=== PATIENT | male | born 1995 | race Caucasian/White ===

== ENCOUNTER 2017-02-17 15:33 | Inpatient (IN) | payer BC ==
[~2017-02-17] VITALS: Ht 180.3 cm; Wt 67.2 kg
--- NOTE | 2017-02-17 16:43 | DIAGNOSTIC IMAGING REPORT ---
SINGLE VIEW CHEST CLINICAL HISTORY: Weakness. Change in mental status. FINDINGS: An AP, portable, upright chest radiograph is obtained. No prior studies are available for comparison at the time of dictation. The cardiomediastinal silhouette is unremarkable. The lungs and pleural spaces are clear. No pneumothorax is seen. The bony thorax is grossly intact. IMPRESSION: No active disease in the chest. Electronically signed by: Pradeep Arceo M.D. 02/17/2017 4:42 PM Dictated Date/Time: 02/17/2017 4:42 PM
[2017-02-17 17:08] LABS: INR 1.3 (0.9-1.1); PARTIAL THROMBOPLASTIN RATIO 1.3
[2017-02-17 17:20] LABS: BUN/CREATININE RATIO 11.2 (10-20); CALCIUM 8.8 mg/dl (8.5-10.1); CREATININE 0.96 mg/dl (0.60-1.40)
[2017-02-17 17:21] LABS: URINE APPEARANCE CLEAR (CLEAR); URINE BILIRUBIN NEG (NEG); URINE COLOR YELLOW; URINE NITRITE NEG (NEG); URINE PH 7.5 (4.5-7.5); URINE SPECIFIC GRAVITY 1.009 (1.000-1.030); UROBILINOGEN NEG (NEG); ZZUR CULT IF INDIC CLEAN CATCH NO
[2017-02-17 17:22] LABS: MANUAL MICROSCOPIC REQUIRED? NO; REVIEW REQ? NO
[2017-02-17 17:30] LABS: THYROID STIMULATING HORMONE 0.521 uIu/ml (0.300-4.500)
[2017-02-17 17:48] LABS: BASO ABS # 0.06 K/uL (0-0.2); BASOPHIL % 0.9 % (0-2); COMPLETE YES; HEMATOCRIT 44.2 % (42-52); LARGE PLATELETS 2+; LYMPH ABS # 1.87 K/uL (1.2-3.4); LYMPHOCYTE % 28.9 %; MEAN CELL VOLUME 91.3 fL (80-100); MEAN CORPUSCULAR HEMOGLOBIN 30.4 pg (25-34); MEAN CORPUSCULAR HGB CONC 33.3 g/dl (32-36); NEUTROPHILS % 46.5 %; PLATELET COUNT 7 K/uL (130-400); PLT ESTIMATE SIGNIFIC DECREASED; RED BLOOD COUNT 4.84 M/uL (4.7-6.1); VARIANT LYM ABS # 1.25 K/uL; VARIANT LYMPHOCYTE % 19.3 %; WHITE BLOOD COUNT 6.46 K/uL (4.8-10.8)
[2017-02-17] MEDS ORDERED: METHYLPREDNISOLONE 125 MG VIAL IV STA (18:27)
--- NOTE | 2017-02-17 18:54 | EMERGENCY ROOM VISIT NOTE ---
History Report prepared by Heron: Renzo Dutta Under the Supervision of: Dr. Pradeep Sarabia M.D. First contact with patient: 16:08 Chief Complaint: REFERRED BY DOCTOR Stated Complaint: BRUISING, BLOOD PLATELET COUNT LOW; REF. BY [facility] History of Present Illness The patient is a 21 year old male who presents to the Emergency Room with complaints of abnormal blood work that was taken prior to arrival. The patient states that he started to experience diaphoresis over night on February 03, , and . The patient states that he noticed bruising and easy bleeding for two weeks. He reports that if he cuts himself shaving, he cannot control the bleeding. He reports that on 02/09 he noticed that he had a bruise and was unsure how it happened. The patient states that he noticed another bruise a couple of days following his first bruise. He reports that he noticed that his gums would bleed when he brushed his teeth. The patient states that he noticed he was also experiencing mouth ulcers and blood blisters a couple of times. The patient also states that he noticed dry blood on his scalp after waking up one morning, but is unsure if he scratched his scalp overnight. He reports that he has been fatigued lately, which he believes is due to stress from school. The patient admits that he slept all day and missed classes one day. He reports that last night, he noticed that there were "red dots: on his lower extremities. The patient states that this morning, he noticed that the "red dots " also appeared on his left upper extremity. The patient states that he went to [facility] for blood work, and had a result of a platelet count of 3000. He reports that [facility] sent him to the ED. The patient denies having these symptoms before, a fever, sore throat, melena, hematochezia, and fluctuating weight. Source of History: patient Onset: prior to arrival Position: other (global) Quality: other (3000 platelet count) Associated Symptoms: + fatigue, + rash, No fevers, No sorethroat, No melena , No hematochezia Review of Systems See HPI for pertinent positives & negatives. A total of 10 systems reviewed and were otherwise negative. Past Medical & Surgical Medical Problems: (1) Bruising The patient reports no pertinent medical or surgical history. Family History Cancer Diabetes mellitus FH: heart disease Hypertension Social History Smoking Status: Never Smoker Smokeless Tobacco Use: No Alcohol Use: occasionally Drug Use: none Marital Status: single Housing Status: lives with roommate Occupation Status: [employer] student Current/Historical Medications No Active Prescriptions or Reported Meds Allergies Coded Allergies: No Known Allergies (Unverified , 02/17/17) Physical Exam Vital Signs Date Time Temp Pulse Resp B/P (MAP) Pulse Ox O2 Delivery O2 Flow Rate FiO2 02/17/17 18:35 64 18 120/67 98 Room Air 02/17/17 15:56 37.4 92 18 129/73 98 Room Air Physical Exam GENERAL: Patient is in no acute distress. HEENT: No acute trauma, normocephalic atraumatic, mucous membranes moist, no nasal congestion, no scleral icterus. Scattered blisters along the buccal mucosa filled with blood. No throat erythema. NECK: No stridor, no adenopathy, no meningismus, trachea is midline. LUNGS: Clear to auscultation bilaterally, no wheeze, no rhonchi, breath sounds equal. HEART: Without murmurs gallops or rubs, regular rate and rhythm. ABDOMEN: Soft, nontender, bowel sounds positive, no hernias, no peritonitis. EXTREMITIES: No cyanosis or edema, full range of motion of all the joints without pain or difficulty. NEUROLOGIC: Oriented x 3, no acute motor or sensory deficits, no focal weakness. SKIN: No jaundice. Two bruises on the right lower extremity and one on left lower extremity. Medical Decision & Procedures ER Provider Diagnostic Interpretation: X-ray results as stated below per interpretation by me and the radiologist: SINGLE VIEW CHEST CLINICAL HISTORY: Weakness. Change in mental status. FINDINGS: An AP, portable, upright chest radiograph is obtained. No prior studies are available for comparison at the time of dictation. The cardiomediastinal silhouette is unremarkable. The lungs and pleural spaces are clear. No pneumothorax is seen. The bony thorax is grossly intact. IMPRESSION: No active disease in the chest. Electronically signed by: Pradeep Arceo M.D. 02/17/2017 4:42 PM Dictated Date/Time: 02/17/2017 4:42 PM Laboratory Results 02/17/17 16:32 Red Blood Count 4.84, Mean Corpuscular Volume 91.3, Mean Corpuscular Hemoglobin 30.4, Mean Corpuscular Hemoglobin Concent 33.3 02/17/17 16:32 Test 02/17/17 16:32 02/17/17 16:50 02/17/17 17:00 White Blood Count 6.46 K/uL (4.8-10.8) Red Blood Count 4.84 M/uL (4.7-6.1) Hemoglobin 14.7 g/dL (14.0-18.0) Hematocrit 44.2 % (42-52) Mean Corpuscular Volume 91.3 fL (80-100) Mean Corpuscular Hemoglobin 30.4 pg (25-34) Mean Corpuscular Hemoglobin Concent 33.3 g/dl (32-36) Platelet Count 7 K/uL (130-400) RDW Standard Deviation 42.3 fL (36.4-46.3) RDW Coefficient of Variation 12.6 % (11.5-14.5) Neutrophils % (Manual) 46.5 % Lymphocytes % (Manual) 28.9 % Variant Lymphocytes % (manual) 19.3 % Monocytes % (Manual) 4.4 % Basophils % (Manual) 0.9 % (0-2) Neutrophils # (Manual) 3.00 K/uL (1.4-6.5) Total Absolute Neutrophils 3.00 K/uL (1.4-6.5) Lymphocytes # (Manual) 1.87 K/uL (1.2-3.4) Absolute Variant Lymphocytes 1.25 K/uL Total Absolute Lymphocytes 3.11 K/uL (1.2-3.4) Monocytes # (Manual) 0.28 K/uL (0.11-0.59) Basophils # (Manual) 0.06 K/uL (0-0.2) Platelet Estimate SIGNIFIC DECREASED Large Platelets 2+ Anion Gap 6.0 mmol/L (3-11) Est Creatinine Clear Calc Drug Dose 118.8 ml/min Estimated GFR () 130.4 Estimated GFR (Non- 112.5 BUN/Creatinine Ratio 11.2 (10-20) Calcium Level 8.8 mg/dl (8.5-10.1) Total Bilirubin 0.6 mg/dl (0.2-1) Aspartate Amino Transf (AST/SGOT) 32 U/L (15-37) Alanine Aminotransferase (ALT/SGPT) 59 U/L (12-78) Alkaline Phosphatase 104 U/L (45-117) Total Creatine Kinase 102 U/L (39-308) Total Protein 7.9 gm/dl (6.4-8.2) Albumin 3.9 gm/dl (3.4-5.0) Globulin 4.0 gm/dl (2.5-4.0) Albumin/Globulin Ratio 1.0 (0.9-2) Thyroid Stimulating Hormone (TSH) 0.521 uIu/ml (0.300-4.500) Prothrombin Time 14.0 SECONDS (9.0-12.0) Prothromb Time International Ratio 1.3 (0.9-1.1) Activated Partial Thromboplast Time 32.7 SECONDS (21.0-31.0) Partial Thromboplastin Ratio 1.3 Urine Color YELLOW Urine Appearance CLEAR (CLEAR) Urine pH 7.5 (4.5-7.5) Urine Specific [place] 1.009 (1.000-1.030) Urine Protein NEG (NEG) Urine Glucose (UA) NEG (NEG) Urine Ketones NEG (NEG) Urine Occult Blood NEG (NEG) Urine Nitrite NEG (NEG) Urine Bilirubin NEG (NEG) Urine Urobilinogen NEG (NEG) Urine Leukocyte Esterase NEG (NEG) Laboratory results reviewed by me. Medications Administered Medications (Trade) Dose Ordered Sig/Nidia Route Start Time Stop Time Status Last Admin Dose Admin Methylprednisolone Sodium Succinate (Solu-Medrol IV) 100 mg NOW STAT IV 02/17/17 18:27 02/17/17 18:28 DC 02/17/17 18:36 100 MG ED Course 1612: The patient was evaluated in room B03B. A complete history and physical exam was performed. 1824: I discussed the patient's case with Rosa Allred Hematology. He suggests that the patient is given IV Solu-Medrol and is kept in the hospital. 1833: I discussed the patient's case with Dr. Gabrielle Colorado, [facility] Hospitalist. She understands the patient's condition and agrees to accept the patient. The patient will be further evaluated. 1834: I reevaluated the patient and updated him on his results. I discussed his treatment plan and he agreed to the plan. The patient will be further evaluated. Medical Decision The patient is a 21 year old male who presents to the ED with complaints of abnormal lab work that occurred prior to arrival. Differential diagnoses considered include viral illness, malignancy, coagulopathy, bone marrow suppression, ITP, There is no leukocytosis or concerning anemia. Platelet count is quite low at only 7000. A mild coagulopathy was noted with an INR 1.3. No significant electrolyte abnormalities, kidney failure or hepatitis. The patient appears to be in a euthyroid state. Urinalysis does not show hematuria or infection. Chest film does not show mediastinal widening or pneumonia. I spoke with the process manager electronic commerce specialist. IV steroids were recommended. The patient was given 100 mg of IV Solu-Medrol. The patient requires admission/observation. 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 I talked with the patient and case management. The on-call hospitalist was consulted. Medication Reconcilliation Current Medication List: was personally reviewed by me Blood Pressure Screening Patient's blood pressure: Normal blood pressure Consults Time Called: 1823 Consulting Physician: Rosa Allred Hematology Returned Call: 1823 I discussed the patient's case with Rosa Allred Hematology. He suggests that the patient is given IV Solu-Medrol and is kept in the hospital. Additional Consults: Time Called: 1832 Consulted Physician: Dr. Gabrielle Colorado, [facility] Hospitalist Returned Call: 1832 Additional Comments: I discussed the patient's case with Dr. Gabrielle Colorado, [facility] Hospitalist. She understands the patient's condition and agrees to accept the patient. The patient will be further evaluated. Impression Primary Impression: Acute ITP Scribe Attestation The scribe's documentation has been prepared under my direction and personally reviewed by me in its entirety. I confirm that the note above accurately reflects all work, treatment, procedures, and medical decision making performed by me. Departure Information Dispostion Being Evaluated By Hospitalist Prescriptions No Active Prescriptions or Reported Meds Referrals [facility] (PCP) Patient Instructions [facility]
[2017-02-17] MEDS ORDERED: ACETAMINOPHEN 325 MG TAB PO PRN (19:00)
[2017-02-17] MEDS ORDERED: ONDANSETRON INJ 2 MG/ML 2 ML VIAL IV PRN (19:00)
[2017-02-17] MEDS ORDERED: MAGNESIUM HYDROXIDE SUSP 30 ML UDC PO PRN (19:00)
--- NOTE | 2017-02-17 19:01 | History and Physical ---
History & Physical Date & Time of Service: Feb 17, 2017 at 18:52 Chief Complaint: Bruising, Blood Platelet Count Low; Ref. By [facility] Primary Care Physician: Services,[facility] History of Present Illness Source: patient 21 y/o M who was sent here by [facility] for low platelet counts. Pt states he noticed blood blisters along the inside of his mouth in early January. He had night sweats every night from 02/03- and has felt generally tired since this time. He is taking a higher course load this semester and attributed it to this. He started noticing bruising around 02/09 and he states that he does not usually bruise easily. Last night he had red spots on his legs and this AM they were present on his arms. They have since resolved but he has a photo on his camera. He was seen by [facility] and found to have a platelet count of 3. Pt states he otherwise feels fine, but is overall fatigued. No prior hx of ITP or other blood disorders. Pt denies fever, SOB, chest pain, abd pain, n/v/c/d, LE pain or swelling. No abd pain throughout this episode. Possibly some darker sputum but no leila bleeding. No nosebleeds or blood in urine or stool. Pt does have HIV exposure risk stemming from an incident on 12/13. HIV testing on 12/26 was neg and again on 02/06. Pt notes his mother is getting on Friday. Past Medical/Surgical History Denies prior health issues or hospitalizations Family History Family history was reviewed; no changes noted. Neg for ITP Social History Smoking Status: Never Smoker Alcohol Use: socially (but has been quite busy with school and overall fatigued , so not much in the past month) Drug Use: none Allergies Coded Allergies: No Known Allergies (Unverified , 02/17/17) Home Medications No Active Prescriptions or Reported Meds Review of Systems Pertinent positives and negatives reviewed in HPI--all others negative Physical Exam Vital Signs Date Time Temp Pulse Resp B/P (MAP) Pulse Ox O2 Delivery O2 Flow Rate FiO2 02/17/17 18:35 64 18 120/67 98 Room Air 02/17/17 15:56 37.4 92 18 129/73 98 Room Air General Appearance: WD/WN, no apparent distress Head: normocephalic, atraumatic Eyes: normal inspection, EOMI ENT: hearing grossly normal Neck: supple Respiratory/Chest: normal breath sounds, no respiratory distress, no accessory muscle use Cardiovascular: regular rate, rhythm, no edema Abdomen/GI: non tender, soft Extremities/Musculoskelatal: no calf tenderness, no pedal edema Neurologic/Psych: alert, normal mood/affect Skin: warm/dry, + pertinent finding (bruising on LE) Diagnostics Laboratory Results Results Past 24 Hours Test 02/17/17 16:32 02/17/17 16:50 02/17/17 17:00 Range/Units White Blood Count 6.46 4.8-10.8 K/uL Red Blood Count 4.84 4.7-6.1 M/uL Hemoglobin 14.7 14.0-18.0 g/dL Hematocrit 44.2 42-52 % Mean Corpuscular Volume 91.3 80-100 fL Mean Corpuscular Hemoglobin 30.4 25-34 pg Mean Corpuscular Hemoglobin Concent 33.3 32-36 g/dl Platelet Count 7 130-400 K/uL RDW Standard Deviation 42.3 36.4-46.3 fL RDW Coefficient of Variation 12.6 11.5-14.5 % Neutrophils % (Manual) 46.5 % Lymphocytes % (Manual) 28.9 % Variant Lymphocytes % (manual) 19.3 % Monocytes % (Manual) 4.4 % Basophils % (Manual) 0.9 0-2 % Neutrophils # (Manual) 3.00 1.4-6.5 K/uL Total Absolute Neutrophils 3.00 1.4-6.5 K/uL Lymphocytes # (Manual) 1.87 1.2-3.4 K/uL Absolute Variant Lymphocytes 1.25 K/uL Total Absolute Lymphocytes 3.11 1.2-3.4 K/uL Monocytes # (Manual) 0.28 0.11-0.59 K/uL Basophils # (Manual) 0.06 0-0.2 K/uL Platelet Estimate SIGNIFIC DECREASED Large Platelets 2+ Sodium Level 138 136-145 mmol/L Potassium Level 4.0 3.5-5.1 mmol/L Chloride Level 103 98-107 mmol/L Carbon Dioxide Level 29 21-32 mmol/L Anion Gap 6.0 3-11 mmol/L Blood Urea Nitrogen 11 7-18 mg/dl Creatinine 0.96 0.60-1.40 mg/dl Est Creatinine Clear Calc Drug Dose 118.8 ml/min Estimated GFR () 130.4 Estimated GFR (Non- 112.5 BUN/Creatinine Ratio 11.2 10-20 Random Glucose 91 70-99 mg/dl Calcium Level 8.8 8.5-10.1 mg/dl Total Bilirubin 0.6 0.2-1 mg/dl Aspartate Amino Transf (AST/SGOT) 32 15-37 U/L Alanine Aminotransferase (ALT/SGPT) 59 12-78 U/L Alkaline Phosphatase 104 45-117 U/L Total Creatine Kinase 102 39-308 U/L Total Protein 7.9 6.4-8.2 gm/dl Albumin 3.9 3.4-5.0 gm/dl Globulin 4.0 2.5-4.0 gm/dl Albumin/Globulin Ratio 1.0 0.9-2 Thyroid Stimulating Hormone (TSH) 0.521 0.300-4.500 uIu/ml Prothrombin Time 14.0 9.0-12.0 SECONDS Prothromb Time International Ratio 1.3 0.9-1.1 Activated Partial Thromboplast Time 32.7 21.0-31.0 SECONDS Partial Thromboplastin Ratio 1.3 Urine Color YELLOW Urine Appearance CLEAR CLEAR Urine pH 7.5 4.5-7.5 Urine Specific [place] 1.009 1.000-1.030 Urine Protein NEG NEG Urine Glucose (UA) NEG NEG Urine Ketones NEG NEG Urine Occult Blood NEG NEG Urine Nitrite NEG NEG Urine Bilirubin NEG NEG Urine Urobilinogen NEG NEG Urine Leukocyte Esterase NEG NEG CXR normal Impression Assessment and Plan 21 y/o M who was admitted on 02/17 for ITP ITP: platelets 7 on admission Hem has recommended for steroids and monitor Will give 140mg QD (2mg/kg/day) Recent HIV testing WNL, will not repeat Hem/onc c/s pending No hx of prior Hb WNL UA neg Spleen is not palpable on exam TSH WNL Level of Care Med/Surg VTE Prophylaxis VTE Risk Assessment Done? Y/N: Yes Risk Level: Low
--- NOTE | 2017-02-17 19:43 | Oncology Consultation ---
Oncology/Heme Consultation Date of Consultation: Feb 17, 2017. 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 He states that he noticed bruising on his lower extremities some that were provoked in some lower unprovoked over the past 2-3 weeks. He is also has some gingival bleeding over the past couple of weeks. He states that he feels he has some oral blood blisters. About 2 weeks ago he had a 1 or 2 day bout of night sweats he states. He presented to the emergency room with this bruising and was found to be thrombocytopenic. His past medical history is really unremarkable. Denies significant ethyl alcohol usage. He denies headache. He denies any blood in his urine or blood in the stool. He describes what might of been petechiae on his lower as well as upper extremities earlier today that has since resolved. Past Medical/Surgical History Medical Problems: (1) Acute ITP Status: Acute (2) Traumatic ecchymosis of multiple sites of lower extremity Status: Acute (3) Traumatic ecchymosis of multiple sites of upper extremity and shoulder Status: Acute Family History Relation not specified for: Cancer Diabetes mellitus FH: heart disease Hypertension Heart disease primarily; his grandfather did have leukemia. Social History Negative for significant smoking. He does drink alcohol. He describes over this weekend that he had some alcohol Friday evening but none or very little Friday Smoking Status: Never Smoker Smokeless Tobacco Use: No Alcohol Use: socially (but has been quite busy with school and overall fatigued , so not much in the past month) Drug Use: none Marital Status: single Housing Status: lives with roommate Occupation Status: [employer] student Allergies Coded Allergies: No Known Allergies (Unverified , 02/17/17) Home Medications No Active Prescriptions or Reported Meds Current Inpatient Medications Current Inpatient Medications Medications (Trade) Dose Ordered Sig/Nidia Route Start Time Stop Time Status Last Admin Dose Admin Acetaminophen (Tylenol Tab) 650 mg Q4H PRN PO 02/17/17 19:00 03/19/17 18:59 UNV Magnesium Hydroxide (Milk Of Magnesia Susp) 30 ml Q6H PRN PO 02/17/17 19:00 03/19/17 18:59 UNV Ondansetron HCl (Zofran Inj) 4 mg Q6H PRN IV 02/17/17 19:00 03/19/17 18:59 UNV Methylprednisolone Sodium Succinate 140 mg/Syringe 2.24 ml @ 1.5 mls/min DAILY IV 02/18/17 09:00 03/20/17 08:59 UNV Review of Systems Constitutional: Negative for weight loss, night sweats except for a day or 2 on February 03, he denies fever Eyes: Negative for event change of vision ENT: Negative for epistaxis, nasal discharge, sore throat, or deafness Cardiovascular: Negative for chest pain, palpitations, dizziness, diaphoresis Respiratory: Negative for new shortness of breath,hemoptysis, or purulent cough Gastrointestinal: Negative for diarrhea, hematemesis, melena, nausea, vomiting , or dyspepsia Integumentary (skin): Negative for rash or jaundice discoloration Genitourinary: Negative for urinary frequency, hematuria, or dysuria Neurological: Negative for weakness, seizure activity, headache, or dizziness Lymphatic/Hematologic: Negative for petechiae, bleeding or new adenopathy Musculoskeletal: Negative for new joint or back pain Allergic/Immunologic: Negative for unusual rash except for what might have been petechiae earlier today on his left arm; he denies pruritis. Physical Exam Date Time Temp Pulse Resp B/P (MAP) Pulse Ox O2 Delivery O2 Flow Rate FiO2 02/17/17 18:35 64 18 120/67 98 Room Air 02/17/17 15:56 37.4 92 18 129/73 98 Room Air Constitutional: vitals are stable. Alert pleasant well-developed gentleman Eyes: Eyes are IVY EOMI without conjuctival erythema or icterus. ENT: External examination was negative for masses. He does have some oral petechiae on the posterior aspect of the upper palate Neck: Negative for masses or palpable thyromegaly Respiratory: Lung sounds were generally clear bilaterally Cardiovascular: Heart was RRR without significant murmur, gallops aoe rubs Gastrointestinal: No palpable hepatic or splenomegaly. The abdomen was soft with normal bowel sounds. Lymphatic system: there was no palpable peripheral lymphadenopathy Musculoskeletal System: The musculoskeletal system seemed concordant with age. Skin: The skin was negative for jaundice. There were some ecchymotic bruising particularly over the right lower extremity. No petechiae are noted Neurologic exam: The exam was negative for any focal findings. Deep tendon reflexes were equal and symmetrical. Psychiatric exam: Was essentially negative with normal mood and effect. Extremities: Negative for edema erythema Laboratory Results Last 24 Hours Test 02/17/17 16:32 02/17/17 16:50 02/17/17 17:00 White Blood Count 6.46 K/uL Red Blood Count 4.84 M/uL Hemoglobin 14.7 g/dL Hematocrit 44.2 % Mean Corpuscular Volume 91.3 fL Mean Corpuscular Hemoglobin 30.4 pg Mean Corpuscular Hemoglobin Concent 33.3 g/dl Platelet Count 7 K/uL RDW Standard Deviation 42.3 fL RDW Coefficient of Variation 12.6 % Neutrophils % (Manual) 46.5 % Lymphocytes % (Manual) 28.9 % Variant Lymphocytes % (manual) 19.3 % Monocytes % (Manual) 4.4 % Basophils % (Manual) 0.9 % Neutrophils # (Manual) 3.00 K/uL Total Absolute Neutrophils 3.00 K/uL Lymphocytes # (Manual) 1.87 K/uL Absolute Variant Lymphocytes 1.25 K/uL Total Absolute Lymphocytes 3.11 K/uL Monocytes # (Manual) 0.28 K/uL Basophils # (Manual) 0.06 K/uL Platelet Estimate SIGNIFIC DECREASED Large Platelets 2+ Sodium Level 138 mmol/L Potassium Level 4.0 mmol/L Chloride Level 103 mmol/L Carbon Dioxide Level 29 mmol/L Anion Gap 6.0 mmol/L Blood Urea Nitrogen 11 mg/dl Creatinine 0.96 mg/dl Est Creatinine Clear Calc Drug Dose 118.8 ml/min Estimated GFR () 130.4 Estimated GFR (Non- 112.5 BUN/Creatinine Ratio 11.2 Random Glucose 91 mg/dl Calcium Level 8.8 mg/dl Total Bilirubin 0.6 mg/dl Aspartate Amino Transf (AST/SGOT) 32 U/L Alanine Aminotransferase (ALT/SGPT) 59 U/L Alkaline Phosphatase 104 U/L Total Creatine Kinase 102 U/L Total Protein 7.9 gm/dl Albumin 3.9 gm/dl Globulin 4.0 gm/dl Albumin/Globulin Ratio 1.0 Thyroid Stimulating Hormone (TSH) 0.521 uIu/ml Prothrombin Time 14.0 SECONDS Prothromb Time International Ratio 1.3 Activated Partial Thromboplast Time 32.7 SECONDS Partial Thromboplastin Ratio 1.3 Urine Color YELLOW Urine Appearance CLEAR Urine pH 7.5 Urine Specific [place] 1.009 Urine Protein NEG Urine Glucose (UA) NEG Urine Ketones NEG Urine Occult Blood NEG Urine Nitrite NEG Urine Bilirubin NEG Urine Urobilinogen NEG Urine Leukocyte Esterase NEG Assessment & Plan Probable ITP. Review of his peripheral smear shows a red cells to be very banal. No significant Aniso- or poikilocytosis. White cell morphology is also normal. Platelets are not clumped. Would recommend steroids only for now. Let 's begin with IV Solu-Medrol 80-120 mg a day in divided doses - perhaps 40 mg IV 3 times daily. Of course daily CBCs. Once the platelet count appears to be trending upwards then he will be discharged on oral prednisone and a taper will then occur as an outpatient. This is all reviewed with the patient this evening and he seems to understand.
[2017-02-17 21:12] VITALS: BP 125/71; PULSE 81; TEMP 36.8; O2SAT 97; Ht 180.3 cm; Wt 67.2 kg
[2017-02-18] VITALS: O2SAT 97
[2017-02-18 00:04] VITALS: BP 116/68; PULSE 66; TEMP 36.4; O2SAT 96
[2017-02-18 07:13] LABS: HEMATOCRIT 42.4 % (42-52); MEAN CELL VOLUME 89.8 fL (80-100); MEAN CORPUSCULAR HEMOGLOBIN 30.9 pg (25-34); MEAN CORPUSCULAR HGB CONC 34.4 g/dl (32-36); RED BLOOD COUNT 4.72 M/uL (4.7-6.1); WHITE BLOOD COUNT 6.33 K/uL (4.8-10.8)
[2017-02-18 07:18] LABS: PLATELET COUNT 8 K/uL (130-400)
[2017-02-18 07:20] LABS: PLT ESTIMATE SIGNIFIC DECREASED
[2017-02-18 07:39] VITALS: BP 123/67; PULSE 68; TEMP 36.5; O2SAT 98
[2017-02-18] MEDS ORDERED: METHYLPREDNISOLONE IV SCH (08:00)
[2017-02-18] MEDS ORDERED: DEXTROSE 5% IV SCH (08:00)
[2017-02-18 08:36] LABS: INR 1.1 (0.9-1.1)
[2017-02-18] MEDS: METHYLPREDNISOLONE IV 40 MG in SYRINGE 0 ML IV SCH ×2 (09:30→16:57)
--- NOTE | 2017-02-18 10:51 | Hematology/Oncology Prog Note ---
Hematology/Onc Progress Note Date of Service Feb 18, 2017. Diagnoses ITP Medications Medications Administered Medications (Trade) Dose Ordered Sig/Nidia Route Start Time Stop Time Status Last Admin Dose Admin Methylprednisolone Sodium Succinate (Solu-Medrol IV) 100 mg NOW STAT IV 02/17/17 18:27 02/17/17 18:28 DC 02/17/17 18:36 100 MG Methylprednisolone Sodium Succinate 40 mg/Syringe 0.64 ml @ 1.5 mls/min Q8H IV 02/18/17 08:30 03/20/17 08:29 02/18/17 09:30 1.5 MLS/MIN Subjective He is doing well. Denies any overt bleeding. Denies any appearance of new petechiae. He denies headache. Review of Systems: Constitutional: Negative for fever or bleeding Eyes: Negative for event change of vision ENT: Negative for epistaxis, nasal discharge, sore throat, or deafness Cardiovascular: Negative for chest pain, palpitations, dizziness, diaphoresis Respiratory: Negative for new shortness of breath,hemoptysis, or purulent cough Gastrointestinal: Negative for diarrhea, hematemesis, melena, nausea, vomiting , or dyspepsia Integumentary (skin): Negative for rash or jaundice discoloration Genitourinary: Negative for urinary frequency, hematuria, or dysuria Neurological: Negative for weakness, seizure activity, headache, or dizziness Lymphatic/Hematologic: Negative for petechiae, bleeding or new adenopathy Musculoskeletal: Negative for new joint or back pain Allergic/Immunologic: Negative for unusual rash or pruritis. Vital Signs Vital Signs Past 12 Hours Date Time Temp Pulse Resp B/P (MAP) Pulse Ox O2 Delivery O2 Flow Rate FiO2 02/18/17 09:30 Room Air 02/18/17 07:39 36.5 68 20 123/67 (85) 98 Room Air 02/18/17 00:04 36.4 66 18 116/68 (84) 96 Room Air 02/18/17 00:00 97 Room Air Physical Exam Constitutional: vitals are stable. Eyes: Eyes are IVY EOMI without conjuctival erythema or icterus. ENT: External examination was negative for masses. Neck: Negative for masses or palpable thyromegaly Respiratory: Lung sounds were generally clear bilaterally Cardiovascular: Heart was RRR without significant murmur, gallops aoe rubs Gastrointestinal: No palpable hepatic or splenomegaly. The abdomen was soft with normal bowel sounds. Lymphatic system: there was no palpable peripheral lymphadenopathy Musculoskeletal System: The musculoskeletal system seemed concordant with age. Skin: The skin was negative for jaundice. Ecchymosis on lower extremities as seen last night and nothing new. No petechiae distally Neurologic exam: The exam was negative for any focal findings. Deep tendon reflexes were equal and symmetrical. Psychiatric exam: Was essentially negative with normal mood and effect. Extremities: Negative for edema erythema Laboratory Last 24 Hours Test 02/17/17 16:32 02/17/17 16:50 02/17/17 17:00 02/18/17 06:16 White Blood Count 6.46 K/uL 6.33 K/uL Red Blood Count 4.84 M/uL 4.72 M/uL Hemoglobin 14.7 g/dL 14.6 g/dL Hematocrit 44.2 % 42.4 % Mean Corpuscular Volume 91.3 fL 89.8 fL Mean Corpuscular Hemoglobin 30.4 pg 30.9 pg Mean Corpuscular Hemoglobin Concent 33.3 g/dl 34.4 g/dl Platelet Count 7 K/uL 8 K/uL RDW Standard Deviation 42.3 fL 41.5 fL RDW Coefficient of Variation 12.6 % 12.6 % Neutrophils % (Manual) 46.5 % Lymphocytes % (Manual) 28.9 % Variant Lymphocytes % (manual) 19.3 % Monocytes % (Manual) 4.4 % Basophils % (Manual) 0.9 % Neutrophils # (Manual) 3.00 K/uL Total Absolute Neutrophils 3.00 K/uL Lymphocytes # (Manual) 1.87 K/uL Absolute Variant Lymphocytes 1.25 K/uL Total Absolute Lymphocytes 3.11 K/uL Monocytes # (Manual) 0.28 K/uL Basophils # (Manual) 0.06 K/uL Platelet Estimate SIGNIFIC DECREASED SIGNIFIC DECREASED Large Platelets 2+ Sodium Level 138 mmol/L Potassium Level 4.0 mmol/L Chloride Level 103 mmol/L Carbon Dioxide Level 29 mmol/L Anion Gap 6.0 mmol/L Blood Urea Nitrogen 11 mg/dl Creatinine 0.96 mg/dl Est Creatinine Clear Calc Drug Dose 118.8 ml/min Estimated GFR () 130.4 Estimated GFR (Non- 112.5 BUN/Creatinine Ratio 11.2 Random Glucose 91 mg/dl Calcium Level 8.8 mg/dl Total Bilirubin 0.6 mg/dl Aspartate Amino Transf (AST/SGOT) 32 U/L Alanine Aminotransferase (ALT/SGPT) 59 U/L Alkaline Phosphatase 104 U/L Total Creatine Kinase 102 U/L Total Protein 7.9 gm/dl Albumin 3.9 gm/dl Globulin 4.0 gm/dl Albumin/Globulin Ratio 1.0 Thyroid Stimulating Hormone (TSH) 0.521 uIu/ml Prothrombin Time 14.0 SECONDS Prothromb Time International Ratio 1.3 Activated Partial Thromboplast Time 32.7 SECONDS Partial Thromboplastin Ratio 1.3 Urine Color YELLOW Urine Appearance CLEAR Urine pH 7.5 Urine Specific [place] 1.009 Urine Protein NEG Urine Glucose (UA) NEG Urine Ketones NEG Urine Occult Blood NEG Urine Nitrite NEG Urine Bilirubin NEG Urine Urobilinogen NEG Urine Leukocyte Esterase NEG Lactate Dehydrogenase 229 U/L Test 02/18/17 08:08 Prothrombin Time 12.0 SECONDS Prothromb Time International Ratio 1.1 Assessment & Plan ITP on parenteral steroids and stable. Platelet count 8000. No further bleeding. If tomorrow's count shows any sort of rise we will ask for discharge on oral prednisone and taper as an outpatient.
--- NOTE | 2017-02-18 14:27 | Hospitalist Progress Note ---
Hospitalist Progress Note Date of Service Feb 18, 2017. (Yuni Chen PA-C) Subjective Pt evaluation today including: conversation w/ patient, physical exam, chart review, lab review, review of inpatient medication list Pain: None PO Intake: Tolerating PO diet Voiding: no voiding problems The patient reports feeling well. He feels that he has another blister forming in his mouth on the left side. He does continue to complain of coughing up some bloody sputum in the morning, but this resolves as the day goes on. His petechiae rash has resolved. He denies any other leila blood. The patient denies fevers, chills, sweats, chest pain, palpitations, claudication, wheezing , shortness of breath, epistaxis, nausea, vomiting, abdominal pain, dysuria, hematuria, urinary retention, hematochezia, melena, paralysis, weakness, numbness and tingling. Additional Comments: See HPI for pertinent positives and negatives. All other systems reviewed and negative. (Yuni Chen PA-C) Objective Vital Signs Date Time Temp Pulse Resp B/P (MAP) Pulse Ox O2 Delivery O2 Flow Rate FiO2 02/18/17 09:30 Room Air 02/18/17 07:39 36.5 68 20 123/67 (85) 98 Room Air 02/18/17 00:04 36.4 66 18 116/68 (84) 96 Room Air 02/18/17 00:00 97 Room Air 02/17/17 21:12 36.8 81 18 125/71 97 Room Air 02/17/17 19:49 95 16 132/78 97 02/17/17 18:35 64 18 120/67 98 Room Air 02/17/17 15:56 37.4 92 18 129/73 98 Room Air (Yuni Chen PA-C) Physical Exam Notes: General appearance: Well-developed, well-nourished, no apparent distress Head: Normocephalic, atraumatic Eyes: Normal inspection, PERRL, EOMI ENT: +Small non-bleeding blister left buccal mucosa. Normal ENT inspection, hearing grossly normal, pharynx normal Neck: Supple, no JVD, trachea midline Respiratory/Chest: Lungs clear to auscultation, normal breath sounds, no respiratory distress Cardiovascular: Regular rate & rhythm, no gallop, no murmur Abdomen/GI: Normal bowel sounds, non-tender, soft Extremities/Musculoskeletal: Normal inspection, no calf tenderness, no pedal edema Neurological/Psych: Alert, normal mood/affect, oriented x 3 Skin: Normal color, warm/dry, no rash (Yuni Chen, TAO) Laboratory Results Last 24 Hours Test 02/17/17 16:32 02/17/17 16:50 02/17/17 17:00 02/18/17 06:16 White Blood Count 6.46 K/uL 6.33 K/uL Red Blood Count 4.84 M/uL 4.72 M/uL Hemoglobin 14.7 g/dL 14.6 g/dL Hematocrit 44.2 % 42.4 % Mean Corpuscular Volume 91.3 fL 89.8 fL Mean Corpuscular Hemoglobin 30.4 pg 30.9 pg Mean Corpuscular Hemoglobin Concent 33.3 g/dl 34.4 g/dl Platelet Count 7 K/uL 8 K/uL RDW Standard Deviation 42.3 fL 41.5 fL RDW Coefficient of Variation 12.6 % 12.6 % Neutrophils % (Manual) 46.5 % Lymphocytes % (Manual) 28.9 % Variant Lymphocytes % (manual) 19.3 % Monocytes % (Manual) 4.4 % Basophils % (Manual) 0.9 % Neutrophils # (Manual) 3.00 K/uL Total Absolute Neutrophils 3.00 K/uL Lymphocytes # (Manual) 1.87 K/uL Absolute Variant Lymphocytes 1.25 K/uL Total Absolute Lymphocytes 3.11 K/uL Monocytes # (Manual) 0.28 K/uL Basophils # (Manual) 0.06 K/uL Platelet Estimate SIGNIFIC DECREASED SIGNIFIC DECREASED Large Platelets 2+ Sodium Level 138 mmol/L Potassium Level 4.0 mmol/L Chloride Level 103 mmol/L Carbon Dioxide Level 29 mmol/L Anion Gap 6.0 mmol/L Blood Urea Nitrogen 11 mg/dl Creatinine 0.96 mg/dl Est Creatinine Clear Calc Drug Dose 118.8 ml/min Estimated GFR () 130.4 Estimated GFR (Non- 112.5 BUN/Creatinine Ratio 11.2 Random Glucose 91 mg/dl Calcium Level 8.8 mg/dl Total Bilirubin 0.6 mg/dl Aspartate Amino Transf (AST/SGOT) 32 U/L Alanine Aminotransferase (ALT/SGPT) 59 U/L Alkaline Phosphatase 104 U/L Total Creatine Kinase 102 U/L Total Protein 7.9 gm/dl Albumin 3.9 gm/dl Globulin 4.0 gm/dl Albumin/Globulin Ratio 1.0 Thyroid Stimulating Hormone (TSH) 0.521 uIu/ml Prothrombin Time 14.0 SECONDS Prothromb Time International Ratio 1.3 Activated Partial Thromboplast Time 32.7 SECONDS Partial Thromboplastin Ratio 1.3 Urine Color YELLOW Urine Appearance CLEAR Urine pH 7.5 Urine Specific [place] 1.009 Urine Protein NEG Urine Glucose (UA) NEG Urine Ketones NEG Urine Occult Blood NEG Urine Nitrite NEG Urine Bilirubin NEG Urine Urobilinogen NEG Urine Leukocyte Esterase NEG Lactate Dehydrogenase 229 U/L Test 02/18/17 08:08 Prothrombin Time 12.0 SECONDS Prothromb Time International Ratio 1.1 (Yuni Chen ., TAO) Assessment and Plan 21 y/o male with no significant past medical history who presented to the ED on 02/17 due to low platelet count, easy bruising, petechiae, and fatigue. Suspected ITP--stable -Admit to med/surg -Still reports morning hemoptysis but no other bleeding -PLT count 8 on 02/18, up from 7 -INR improved to 1.1 on 02/18 -Convert Solu-Medrol 140 mg qd to 40 mg IV q8h -Hematology consulted appreciate recs: if PLT increases, can discharge on oral Prednisone taper -DELIA pending -LDH WNL DVT prophylaxis -Encourage ambulation Code Status -Level I, FULL RESUSCITATION STATUS (Yuni Chen PA-C) I agree with REBECCA assessment and plan and have seen and examined pt myself Resting comfortably in bed VSS Labs reviewed Noted marked thrombocytopenia, Plt 7-->8 this AM No sign of active bleeding Likely ITP Hematology consulted Agree with solumedrol at this time If improving can DC tomorrow with prednisone (Xavi Cardenas D.O.)
[2017-02-18 15:22] VITALS: BP 107/56; PULSE 68; TEMP 36.6; O2SAT 97
--- NOTE | 2017-02-18 15:54 | Medical Student: [facility] ---
Med Student History & Physical Date & Time of Service: Feb 18, 2017 at 15:38 Chief Complaint: Bruising Primary Care Physician: [facility] History of Present Illness Source: patient Jl Barnett is a 21 yo male with no past medical conditions who presents to the hospital following 3 weeks of oral bleeding, petechia, fatigue, night sweats, and thrombocytopenia. In the beginning of January, he noticed oral blood blisters. He then developed night sweats from 09Oct to 11Oct, followed by fatigue since. on Oct he noticed a bruise on his leg from a minor bump to the leg. On Oct he noticed petechia on his ankles, followed by the same lesions on his hands the morning of , prompting him to go to [facility]. At [facility] he was found to have a platelet count of 3, prompting him to come to the hospital where he was found to have a platelet count of 7, CBC otherwise normal. Notably, mentions higher work load this semester and he is graduating this year. Otherwise, denies n/v/d/c, cough, myalgias, sore throat, URI symptoms , LRI symptoms, dysuria. HIV testing previously obtained and negative on 26Dec2016 and 06Feb2017. Initial CXR normal. PT, INR, PTT were 14, 1.3, and 32.7 respectively. BMP normal. Past Medical/Surgical History Medical Problems: (1) Acute ITP Status: Acute (2) Traumatic ecchymosis of multiple sites of lower extremity Status: Acute (3) Traumatic ecchymosis of multiple sites of upper extremity and shoulder Status: Acute Family History Father: heart disease, diabetes Mother: heart disease, diabetes Grandfather: cancer (MGF- ALL leukemia, PGF- Prostate cancer) Grandmother: cancer (MGM- Ovarian with metastases) Social History Smoking Status: Never Smoker Smokeless Tobacco Use: No Alcohol Use: socially (but has been quite busy with school and overall fatigued , so not much in the past month) Drug Use: none Marital Status: single Occupational Status: [employer] student Allergies Coded Allergies: No Known Allergies (Unverified , 02/17/17) Medications No Active Prescriptions or Reported Meds Review of Systems Constitutional: + fever, + chills, + sweats, + fatigue, No weight loss, No weakness Eyes: No worsening of vision, No eye pain, No redness, No diplopia, No problem reported ENT: No hearing loss, No unusual epistaxis, No nasal symptoms, No sore throat, No problem reported Respiratory: No cough, No sputum, No wheezing, No shortness of breath, No dyspnea on exertion, No dyspnea at rest, No hemoptysis, No problem reported Cardiovascular: No chest pain, No orthopnea, No edema, No claudication, No palpitations, No problem reported Abdomen: No pain, No nausea, No vomiting, No diarrhea, No constipation, No GI bleeding, No problem reported Musculoskeletal: + problem reported (bruising), No joint pain, No muscle pain, No swelling, No calf pain Genitourinary - Male: No hematuria, No dysuria, No urinary frequency, No urinary urgency, No urinary hesitancy, No urinary retention, No problem reported Neurologic: No paralysis, No weakness, No numbness/tingling, No vertigo, No problem reported Endocrine: No excessive thirst, No excessive urination, No problem reported Hematologic / Lymphatic: + abnormal bleeding/bruising, + clotting problems, + night sweats, No swollen lymph nodes Integumentary: + new/changing skin lesions, No rash, No itch Physical Exam Vital Signs (24 Hours) Date Time Temp Pulse Resp B/P (MAP) Pulse Ox O2 Delivery O2 Flow Rate FiO2 02/18/17 15:22 36.6 68 20 107/56 (73) 97 Room Air 02/18/17 15:21 Room Air 02/18/17 09:30 Room Air 02/18/17 07:39 36.5 68 20 123/67 (85) 98 Room Air 02/18/17 00:04 36.4 66 18 116/68 (84) 96 Room Air 02/18/17 00:00 97 Room Air 02/17/17 21:12 36.8 81 18 125/71 97 Room Air 02/17/17 19:49 95 16 132/78 97 02/17/17 18:35 64 18 120/67 98 Room Air 02/17/17 15:56 37.4 92 18 129/73 98 Room Air General Appearance: WD/WN, no apparent distress Head: normocephalic, atraumatic Eyes: normal inspection ENT: hearing grossly normal Neck: supple, no adenopathy (No adenopathy in posterior or anterior cervical chains, supraclavicular, or occipital chains. ), no JVD, no carotid bruits, trachea midline Respiratory/Chest: chest non-tender, lungs clear, normal breath sounds, no respiratory distress, no accessory muscle use, + pertinent finding (Scattered petechia surrounding an inflamed pimple on left medial chest. Petechia spread across approx 5cm in diameter of area. Back acne present. No axillary lymphadenopathy) Cardiovascular: regular rate, rhythm, no edema, no gallop, no JVD, no murmur, normal peripheral pulses Abdomen/GI: normal bowel sounds, non tender, soft, no organomegaly, no pulsatile mass Back: no CVA tenderness, + pertinent finding (back acne present) Extremities/Musculoskelatal: normal inspection, no calf tenderness, normal capillary refill, no pedal edema, non-tender Neurologic/Psych: alert, normal mood/affect Skin: normal color, warm/dry Lymphatic: no adenopathy Diagnostics Laboratory Results Results Past 24 Hours Test 02/17/17 16:32 02/17/17 16:50 02/17/17 17:00 02/18/17 06:16 Range/Units White Blood Count 6.46 6.33 4.8-10.8 K/uL Red Blood Count 4.84 4.72 4.7-6.1 M/uL Hemoglobin 14.7 14.6 14.0-18.0 g/dL Hematocrit 44.2 42.4 42-52 % Mean Corpuscular Volume 91.3 89.8 80-100 fL Mean Corpuscular Hemoglobin 30.4 30.9 25-34 pg Mean Corpuscular Hemoglobin Concent 33.3 34.4 32-36 g/dl Platelet Count 7 8 130-400 K/uL RDW Standard Deviation 42.3 41.5 36.4-46.3 fL RDW Coefficient of Variation 12.6 12.6 11.5-14.5 % Neutrophils % (Manual) 46.5 % Lymphocytes % (Manual) 28.9 % Variant Lymphocytes % (manual) 19.3 % Monocytes % (Manual) 4.4 % Basophils % (Manual) 0.9 0-2 % Neutrophils # (Manual) 3.00 1.4-6.5 K/uL Total Absolute Neutrophils 3.00 1.4-6.5 K/uL Lymphocytes # (Manual) 1.87 1.2-3.4 K/uL Absolute Variant Lymphocytes 1.25 K/uL Total Absolute Lymphocytes 3.11 1.2-3.4 K/uL Monocytes # (Manual) 0.28 0.11-0.59 K/uL Basophils # (Manual) 0.06 0-0.2 K/uL Platelet Estimate SIGNIFIC DECREASED SIGNIFIC DECREASED Large Platelets 2+ Sodium Level 138 136-145 mmol/L Potassium Level 4.0 3.5-5.1 mmol/L Chloride Level 103 98-107 mmol/L Carbon Dioxide Level 29 21-32 mmol/L Anion Gap 6.0 3-11 mmol/L Blood Urea Nitrogen 11 7-18 mg/dl Creatinine 0.96 0.60-1.40 mg/dl Est Creatinine Clear Calc Drug Dose 118.8 ml/min Estimated GFR () 130.4 Estimated GFR (Non- 112.5 BUN/Creatinine Ratio 11.2 10-20 Random Glucose 91 70-99 mg/dl Calcium Level 8.8 8.5-10.1 mg/dl Total Bilirubin 0.6 0.2-1 mg/dl Aspartate Amino Transf (AST/SGOT) 32 15-37 U/L Alanine Aminotransferase (ALT/SGPT) 59 12-78 U/L Alkaline Phosphatase 104 45-117 U/L Total Creatine Kinase 102 39-308 U/L Total Protein 7.9 6.4-8.2 gm/dl Albumin 3.9 3.4-5.0 gm/dl Globulin 4.0 2.5-4.0 gm/dl Albumin/Globulin Ratio 1.0 0.9-2 Thyroid Stimulating Hormone (TSH) 0.521 0.300-4.500 uIu/ml Prothrombin Time 14.0 9.0-12.0 SECONDS Prothromb Time International Ratio 1.3 0.9-1.1 Activated Partial Thromboplast Time 32.7 21.0-31.0 SECONDS Partial Thromboplastin Ratio 1.3 Urine Color YELLOW Urine Appearance CLEAR CLEAR Urine pH 7.5 4.5-7.5 Urine Specific [place] 1.009 1.000-1.030 Urine Protein NEG NEG Urine Glucose (UA) NEG NEG Urine Ketones NEG NEG Urine Occult Blood NEG NEG Urine Nitrite NEG NEG Urine Bilirubin NEG NEG Urine Urobilinogen NEG NEG Urine Leukocyte Esterase NEG NEG Lactate Dehydrogenase 229 87-241 U/L Test 02/18/17 08:08 Range/Units Prothrombin Time 12.0 9.0-12.0 SECONDS Prothromb Time International Ratio 1.1 0.9-1.1 Diagnostic Radiology SINGLE VIEW CHEST CLINICAL HISTORY: Weakness. Change in mental status. FINDINGS: An AP, portable, upright chest radiograph is obtained. No prior studies are available for comparison at the time of dictation. The cardiomediastinal silhouette is unremarkable. The lungs and pleural spaces are clear. No pneumothorax is seen. The bony thorax is grossly intact. IMPRESSION: No active disease in the chest. Electronically signed by: Pradeep Arceo M.D. 02/17/2017 4:42 PM Impression Assessment and Plan Jl Barnett is a 21 yo male with no medical history who presents with petechia, thrombocytopenia, fatigue, and night sweats suggestive of ITP. Other etiologies considered were TTP, HUS, HSP, HIT, Aplastic Anemia, bone marrow fibrosis, and drug induced thrombocytopenia. Lack of fever and diarrhea and other symptoms suggest against these other considerations, as does the otherwise normal CBC, normal morphology of RBCs, lack of medication or drug history, and non-pediatric age. ITP: Currently receiving IV methylprednisolone, 100mg initially, now on 40mg q8hr. No acute events, stable clinically. Plan: Will continue to monitor daily CBC for improvement of Plt count. If continues to uptrend, will discharge to home on oral steroid therapy. Reevaluate tomorrow for any new skin findings or lymphadenopathy. Level of Care Med/Surg Advanced Directives Existing Living Will: No Existing Power of Bag Patcher: No DVT Prophylaxis patient low risk - not indicated
[2017-02-19] MEDS: METHYLPREDNISOLONE IV 40 MG in SYRINGE 0 ML IV SCH ×2 (00:06→08:28)
[2017-02-19 00:19] VITALS: BP 114/62; PULSE 71; TEMP 36.4; O2SAT 97
[2017-02-19 06:19] LABS: HEMATOCRIT 42.9 % (42-52); MEAN CELL VOLUME 90.3 fL (80-100); MEAN CORPUSCULAR HEMOGLOBIN 31.4 pg (25-34); MEAN CORPUSCULAR HGB CONC 34.7 g/dl (32-36); MEAN PLATELET VOLUME 12.2 fL (7.4-10.4); PLATELET COUNT 20 K/uL (130-400); PLT ESTIMATE SIGNIFIC DECREASED; RED BLOOD COUNT 4.75 M/uL (4.7-6.1)
[2017-02-19 07:29] VITALS: BP 125/79; PULSE 78; TEMP 36.3; O2SAT 98
[2017-02-19 08:00] VITALS: O2SAT 98
--- NOTE | 2017-02-19 09:15 | Hematology/Oncology Prog Note ---
Hematology/Onc Progress Note Date of Service Feb 19, 2017. Diagnoses ITP Medications Medications Administered Medications (Trade) Dose Ordered Sig/Nidia Route Start Time Stop Time Status Last Admin Dose Admin Methylprednisolone Sodium Succinate (Solu-Medrol IV) 100 mg NOW STAT IV 02/17/17 18:27 02/17/17 18:28 DC 02/17/17 18:36 100 MG Methylprednisolone Sodium Succinate 40 mg/Syringe 0.64 ml @ 1.5 mls/min Q8H IV 02/18/17 08:30 03/20/17 08:29 02/19/17 08:28 1.5 MLS/MIN Subjective He is doing well. Again there is been no further bleeding. Platelet count is 20,000 today Review of Systems: Constitutional: Negative for , night sweats, or fever Eyes: Negative for event change of vision ENT: Negative for epistaxis, nasal discharge, sore throat, or deafness Cardiovascular: Negative for chest pain, palpitations, dizziness, diaphoresis Respiratory: Negative for new shortness of breath,hemoptysis, or purulent cough Gastrointestinal: Negative for diarrhea, hematemesis, melena, nausea, vomiting , or dyspepsia Integumentary (skin): Negative for rash or jaundice discoloration Genitourinary: Negative for urinary frequency, hematuria, or dysuria Neurological: Negative for weakness, seizure activity, headache, or dizziness Lymphatic/Hematologic: Negative for petechiae, bleeding or new adenopathy Musculoskeletal: Negative for new joint or back pain Allergic/Immunologic: Negative for unusual rash or pruritis. Vital Signs Vital Signs Past 12 Hours Date Time Temp Pulse Resp B/P (MAP) Pulse Ox O2 Delivery O2 Flow Rate FiO2 02/19/17 08:31 Room Air 02/19/17 08:00 98 Room Air 02/19/17 07:29 36.3 78 18 125/79 (94) 98 Room Air 02/19/17 00:19 36.4 71 18 114/62 (79) 97 Room Air 02/19/17 00:00 Room Air Physical Exam Constitutional: vitals are stable. Eyes: Eyes are IVY EOMI without conjuctival erythema or icterus. ENT: External examination was negative for masses. Neck: Negative for masses or palpable thyromegaly Respiratory: Lung sounds were generally clear bilaterally Cardiovascular: Heart was RRR without significant murmur, gallops aoe rubs Gastrointestinal: No palpable hepatic or splenomegaly. The abdomen was soft with normal bowel sounds. Lymphatic system: there was no palpable peripheral lymphadenopathy Musculoskeletal System: The musculoskeletal system seemed concordant with age. Skin: The skin was negative for jaundice. Neurologic exam: The exam was negative for any focal findings. Deep tendon reflexes were equal and symmetrical. Psychiatric exam: Was essentially negative with normal mood and effect. Extremities: He has again ecchymosis that was noted 2 days ago with no further ecchymotic areas Assessment & Plan ITP. His platelet count is 20,000. Clinically he is stable. I believe he can be discharged at this point. I did supply him with a prescription for prednisone to take a 20 mg 4 times daily and we will re-gather in 1 week. I did also give him a card but our clinic will be in touch with him. I reviewed with him that we will then taper as an outpatient his prednisone dosing and I forewarned him that the tapered ends up being a very slow process. This was reviewed with the hospitalist in addition.
[2017-02-19] MEDS ORDERED: PRED20TA2 PO ×2 (11:22→11:24)
--- NOTE | 2017-02-19 11:41 | Discharge Instructions ---
Discharge Instructions Date of Service Feb 19, 2017. Admission Reason for Admission: Bruising Discharge Discharge Diagnosis / Problem: Idiopathic Discharge Goals Goal(s): Decrease discomfort, Diagnostic testing, Therapeutic intervention Activity Recommendations Activity Limitations: resume your previous activity (as tolerated) . Instructions / Follow-Up Instructions / Follow-Up You were admitted to the hospital after presenting with bleeding, bruising, fatigue and a low platelet count. This is suspected to be secondary to a condition called idiopathic thrombocytopenic purpura (ITP) in which your own immune system attacks/destroys your own platelets and/or inhibits platelet production. Your platelet count is responding well to steroid treatment, and as you are not actively bleeding, you are now medically stable for discharge. Medications: *Dr. Jade has provided a prescription for prednisone 20 mg by mouth four times a day until you follow up with him in the clinic. You will likely need a prolonged course of steroids. You should take the prednisone with food or milk. Follow up: *You have been scheduled to follow up at [facility] on February 25 at 2:[address] Dinh. *You will be scheduled to follow up with Dr. Jade of hematology in 1 week. Please seek medical attention if you experience fevers, chills, sweats, worsening weakness/fatigue, dizziness/lightheadedness, loss of consciousness, chest pain, shortness of breath, nausea, vomiting, leila bleeding, rash, numbness or tingling. Current Hospital Diet Patient's current hospital diet: Regular Diet Discharge Diet Recommended Diet: Regular Diet Pending Studies Studies pending at discharge: yes List of pending studies: DELIA screen Medical Emergencies . Who to Call and When: Medical Emergencies: If at any time you feel your situation is an emergency, please call 911 immediately. . Non-Emergent Contact Non-Emergency issues call your: Primary Care Provider, Specialist (Public Relations Intern ) Call Non-Emergent contact if: you have a fever, you have any medication questions . Past History Medical & Surgical History: (1) Acute ITP . "Provider Documentation" section prepared by Yuni Chen. . VTE Core Measure Inpt VTE Proph given/why not?: Contraindicated (chemical prophylaxis contraindicated)
--- NOTE | 2017-02-19 11:48 | Discharge Summary ---
Discharge Summary Date of Service Feb 19, 2017. (Yuni Chen ., TAO) Discharge Summary Admission Date: Feb 17, 2017 at 18:52 Discharge Date: Feb 19, 2017 Discharge Disposition: Home Principal Diagnosis: ITP Consultations: Hematology--Dr. Jade (Yuni Chen ., TAO) Medication Reconciliation New Medications: Prednisone (Prednisone Tab) 20 Mg Tab 20 MG PO QID for 7 Days, #28 TAB Discharge Exam Patient reports feeling well. Still feels fatigued but otherwise denies complains. Denies any hemoptysis this morning or new oral blisters. No new rashes, bruises or bleeding. The patient denies fevers, chills, sweats, chest pain, palpitations, claudication, cough, wheezing, shortness of breath, nausea, vomiting, abdominal pain, dysuria, hematuria, urinary retention, paralysis, weakness, numbness and tingling. Review of Systems: Constitutional: + fatigue, No fever, No chills, No sweats, No weakness Eyes: No worsening of vision, No eye pain, No diplopia ENT: No hearing loss, No unusual epistaxis, No sore throat, No trouble swallowing Respiratory: No cough, No sputum, No wheezing, No shortness of breath, No hemoptysis Cardiovascular: No chest pain, No claudication, No palpitations Abdomen: No pain, No nausea, No vomiting, No GI bleeding Musculoskeletal: No joint pain, No muscle pain, No calf pain Genitourinary - Male: No hematuria, No dysuria, No urinary retention Neurologic: No paralysis, No weakness, No numbness/tingling Hematologic / Lymphatic: No abnormal bleeding/bruising, No swollen lymph nodes, No night sweats Integumentary: No rash, No itch, No color change Physical Exam: General Appearance: WD/WN, no apparent distress Eyes: normal inspection, PERRL, EOMI ENT: normal ENT inspection, hearing grossly normal, pharynx normal Neck: supple, no JVD, trachea midline Respiratory/Chest: lungs clear, normal breath sounds, no respiratory distress Cardiovascular: regular rate, rhythm, no gallop, no murmur Abdomen / GI: normal bowel sounds, non tender, soft Extremities: normal inspection, no calf tenderness, no pedal edema Neurologic/Psychiatric: alert, normal mood/affect, oriented x 3 Skin: normal color, warm/dry, no rash (Yuni Chen ., PA-C) Hospital Course 21 y/o male with no significant past medical history who presented to the ED on 02/17 due to low platelet count, easy bruising, petechiae, and fatigue. Suspected ITP--stable -Admit to med/surg -No hemoptysis, epistaxis, hematuria, hematochezia, melena or other leila bleeding. No new ecchymosis. -PLT count 20 on discharge, up from 8 -INR improved to 1.1 on 02/18 -Convert Solu-Medrol 140 mg qd to 40 mg IV q8h -Hematology consulted appreciate recs: Pt stable for discharge. Given script for prednisone 20 mg PO QID until f/u in clinic next week. Will need long taper. -DELIA pending -LDH WNL Mild leukocytosis -WBC 11.9 on discharge, likely secondary to steroid use DVT prophylaxis -Encourage ambulation Code Status -Level I, FULL RESUSCITATION STATUS Dispo -D/C to home w/follow up with PCP and hematology next week Total Time Spent: Greater than 30 minutes This includes examination of the patient, discharge planning, medication reconciliation, and communication with other providers. (Yuni Chen ., PA-C) I agree with PA assessment and plan and have seen and examined pt myself Resting comfortably in bed VSS Labs reviewed Plt 8-->20 No bleeding noted No distress Stable for discharge at this time, f/u hematology, NV on prednisone (Xavi Cardenas, D.OArlene) Discharge Instructions Please refer to the electronic Patient Visit Report (Discharge Instructions) for additional information. (Yuni Chen ., PA-C) Additional Copies To [facility]
[2017-02-19 12:33] VITALS: BP 125/79; PULSE 78; TEMP 36.3; O2SAT 98
--- NOTE | 2017-02-19 12:43 | Medical Student: [facility] ---
Med Student Progress Note Date of Service Feb 19, 2017. Subjective Pt evaluation today including: conversation w/ patient Jl feels well today, no new bruising, bleeding, or spots on his body that he has noticed. No fever, chills, n/v/d, and no other problems at this point. He has spoken with Heme/Onc and understands the plan. Review of Systems Constitutional: No problem reported Respiratory: No problem reported Cardiac: No problem reported Abdomen: No problem reported Objective Vital Signs Date Time Temp Pulse Resp B/P (MAP) Pulse Ox O2 Delivery O2 Flow Rate FiO2 02/19/17 12:33 36.3 78 18 98 Room Air 02/19/17 08:31 Room Air 02/19/17 08:00 98 Room Air 02/19/17 07:29 36.3 78 18 125/79 (94) 98 Room Air 02/19/17 00:19 36.4 71 18 114/62 (79) 97 Room Air 02/19/17 00:00 Room Air 02/18/17 20:00 Room Air 02/18/17 15:22 36.6 68 20 107/56 (73) 97 Room Air 02/18/17 15:21 Room Air Physical Exam General Appearance: WD/WN, no apparent distress Respiratory/Chest: chest non-tender, lungs clear, normal breath sounds, no respiratory distress, no accessory muscle use Cardiovascular: regular rate, rhythm, no edema, no gallop, no JVD, no murmur Skin: normal color, warm/dry, no rash Laboratory Results Last 24 Hours Test 02/19/17 05:13 White Blood Count 11.90 K/uL Red Blood Count 4.75 M/uL Hemoglobin 14.9 g/dL Hematocrit 42.9 % Mean Corpuscular Volume 90.3 fL Mean Corpuscular Hemoglobin 31.4 pg Mean Corpuscular Hemoglobin Concent 34.7 g/dl RDW Standard Deviation 41.5 fL RDW Coefficient of Variation 12.6 % Platelet Count 20 K/uL Mean Platelet Volume 12.2 fL Platelet Estimate SIGNIFIC DECREASED Assessment and Plan Assessment and Plan: Jl Barnett is a 21 yo male with no medical history who presented with petechia, thrombocytopenia, fatigue, and night sweats suggestive of ITP. Other etiologies considered were TTP, HUS, HSP, HIT, Aplastic Anemia, bone marrow fibrosis, and drug induced thrombocytopenia. Lack of fever and diarrhea and other symptoms suggest against these other considerations, as does the otherwise normal CBC, normal morphology of RBCs, lack of medication or drug history, and non-pediatric age. ITP: Currently receiving IV methylprednisolone, 100mg initially, now on 40mg q8hr. No acute events, stable clinically. Platelets has improved to 20 since yesterday. Plan: Has improved since yesterday, now at 20k. Will discharge to home on oral prednisone 80mg PO qdaily with education on avoiding high bleeding risk activities until platelets above 50k. Follow up and manage on outpatient basis. Discharge planning: home
== END 2017-02-19 13:01 | disposition home or self-care (01) | DRG 813 ==
LOC: C.EDB 15:37 → C.4E 18:52 → ENRESERV 19:15 → C.4E 02-18 16:29
PROVIDERS: ADMIT Family Medicine; ATTEND Hospitalist
DX: D69.3 Immune thrombocytopenic purpura (principal); Z83.3 Family history of diabetes mellitus; Z20.6 Contact with and (suspected) exposure to human immunodeficiency virus [HIV]; Z82.49 Family history of ischemic heart disease and other diseases of the circulatory system